=== PATIENT | male | born 1990 | race Caucasian/White ===

== ENCOUNTER 2018-10-04 23:20 | Emergency (ER) | payer SELFPAY ==
--- NOTE | 2018-10-05 00:03 | EDM.PDOC ---
ED HPI GENERAL MEDICAL PROBLEM - General Chief Complaint: Chest Pain Stated Complaint: CHEST PAIN Time Seen by Provider: 10/04/18 23:38 Source of Information: Reports: Patient, RN Notes Reviewed History Limitations: Reports: No Limitations - History of Present Illness INITIAL COMMENTS - FREE TEXT/NARRATIVE: The patient states that he developed a sudden-onset "compression" feeling to his sternal area around 14:00 this afternoon, while at work. He states that he feels the need to occasionally gasp for air, although denies having dyspnea per se. He states that he feels worse if he takes a deep breath while fully upright or supine, better if he is in a semi-recumbent position, even if he takes a deep breath. No associated nausea, diaphoresis, or sense of impending doom. The patient reports developing a headache around 20:30. The patient states that he has had similar chest discomfort twice in the past, both about 2 years ago. He states that he was evaluated, and that a chest x-ray indicated that he may have fractured some of his costal cartilage while playing football. Surgery was recommended, which the patient did not pursue. The patient denies recent injury, although he states that he has to lift heavy items at work, and that he also lifts weights at the gym. The patient does not have a PCP. Mid-Sternal Chest Pain Score (Numeric/FACES): 8 - Related Data Allergies Allergy/AdvReac Type Severity Reaction Status Date / Time naproxen Allergy Swelling Verified 10/04/18 23:26 Home Meds: Home Meds . [No Known Home Meds] 10/04/18 [History] Past Medical History - Past Surgical History HEENT Surgical History: Reports: Myringotomy w Tube(s) (bilateral) Social & Family History - Tobacco Use Smoking Status *Q: Current Every Day Smoker Years of Tobacco use: 16 Packs/Tins Daily: 0.3 Packs/Tins Daily Comment: Down from 3 ppd - Alcohol Use Alcohol Use History: Yes Alcohol Use Frequency: Socially - Recreational Drug Use Recreational Drug Use: No - Living Situation & Occupation Living situation: Reports: Single, Other (Roomate) Occupation: Employed (Construction) ED ROS GENERAL - Review of Systems Review Of Systems: ROS reveals no pertinent complaints other than HPI. ED EXAM, GENERAL - Physical Exam Exam: See Below Exam Limited By: No Limitations General Appearance: Alert, WD/WN, No Apparent Distress Eye Exam: Bilateral Eye: EOMI, Normal Inspection Ears: Normal External Exam, Hearing Grossly Normal Nose: Normal Inspection Throat/Mouth: Normal Inspection, Normal Lips, Normal Voice, No Airway Compromise Head: Atraumatic, Normocephalic Neck: Normal Inspection, Full Range of Motion Respiratory/Chest: No Respiratory Distress, Lungs Clear, Normal Breath Sounds, No Accessory Muscle Use, Other (Reproducible tenderness to palpation of the sternum and the medial aspects of both pectoralis muscles. Pain is also reproduced with the patient compressing his hands in front of his chest, and by crossing either of his arms across his chest and) Cardiovascular: Normal Peripheral Pulses, Regular Rate, Rhythm, No Edema, No Gallop, No JVD, No Murmur, No Rub Peripheral Pulses: 4+: Radial (L), Radial (R) GI/Abdominal: Normal Bowel Sounds, Soft, Non-Tender, No Organomegaly, No Distention, No Abnormal Bruit, No Mass (Male) Exam: Deferred Rectal (Males) Exam: Deferred Back Exam: Normal Inspection, Full Range of Motion, NT Extremities: Normal Inspection, Normal Range of Motion, No Pedal Edema, Normal Capillary Refill Neurological: Alert, Oriented, Normal Cognition, No Motor/Sensory Deficits Psychiatric: Normal Affect Skin Exam: Warm, Dry, Intact, Normal Color, No Rash EKG INTERPRETATION EKG Date: 10/04/18 Time: 11:29 Rhythm: NSR Rate (Beats/Min): 97 [place]: Normal P-Wave: Present (Possible LAE) QRS: Wide (Nonspecific intraventricular conduction delay) ST-T: Normal (J-point elevation, but no ischemic changes) QT: Normal Comparison: NA - No Prior EKG Course - Vital Signs Last Recorded V/S: Last Vital Signs Temp 37.3 C 10/04/18 23:24 Pulse 96 10/04/18 23:24 Resp 15 10/04/18 23:24 BP 158/111 H 10/04/18 23:24 Pulse Ox 100 10/04/18 23:24 - Orders/Labs/Meds Orders: Active Orders 24 hr Category Date Time Status EKG 12 Lead [EKG Documentation Completion] [RC] STAT Care 10/04/18 23:59 Active - Re-Assessments/Exams Free Text/Narrative Re-Assessment/Exam: 10/04/18 23:58 The patient's pain is reproducible with palpation of his sternum, as well as when he flexes either of his pectoralis muscles. The patient likely suffered pectoralis strain when either lifting weights or at work. I'm recommending rest and ibuprofen. He would like a note for work. Departure - Departure Time of Disposition: 23:59 Disposition: Home, Self-Care 01 Condition: Good Clinical Impression: Pectoralis muscle strain - Discharge Information *PRESCRIPTION DRUG MONITORING PROGRAM REVIEWED*: Not Applicable *COPY OF PRESCRIPTION DRUG MONITORING REPORT IN PATIENT PABLO: Not Applicable Instructions: Muscle Strain Referrals: PCP,Not In Area [Primary Care Provider] - Forms: ED Department Discharge, ED Return to Work/School Form Additional Instructions: You were seen in the emergency room for pain to the center of your chest. Workup in the ER included an ECG, which returned normal. Based on your history and physical exam, the cause of your pain is due to strain of both of your pectoralis (chest) muscles. As discussed, there is no way to un-strain a muscle - it will have to heal on its own. We recommend that you not overly exert your chest muscles for the next few days. A note for work has been provided to you. We recommend that you take [id number] ibuprofen, 2-3 tablets (400-600 mg) every 8 hours, with food, as needed for discomfort. If any other problems, please do not hesitate to return to the ER. - My Orders Last 24 Hours: My Active Orders 10/04/18 23:59 EKG 12 Lead [EKG Documentation Completion] [RC] STAT - Assessment/Plan Last 24 Hours: My Active Orders 10/04/18 23:59 EKG 12 Lead [EKG Documentation Completion] [RC] STAT
== END 2018-10-05 00:11 | disposition home or self-care (01) ==
LOC: JD.ED 23:20
DX: S29.011A Strain of muscle and tendon of front wall of thorax, initial encounter (principal); F17.210 Nicotine dependence, cigarettes, uncomplicated; Z88.8 Allergy status to other drugs, medicaments and biological substances; X58.XXXA Exposure to other specified factors, initial encounter; Y99.0 Civilian activity done for income or pay
CPT/HCPCS: 93005; 93010; 99283; 99284-25

== ENCOUNTER 2018-10-05 20:25 | Emergency (ER) | payer SELFPAY ==
[2018-10-05] MEDS ORDERED: Penicillin V Potassium 500 MG Tab PO ONE (22:51)
--- NOTE | 2018-10-05 22:56 | EDM.PDOC ---
ED HPI GENERAL MEDICAL PROBLEM - General Chief Complaint: ENT Problem Stated Complaint: TOOTH PAIN Time Seen by Provider: 10/05/18 22:27 Source of Information: Reports: Patient, RN Notes Reviewed History Limitations: Reports: No Limitations - History of Present Illness INITIAL COMMENTS - FREE TEXT/NARRATIVE: The patient was seen by me in this ED late last night for retrosternal chest discomfort that was found to be musculoskeletal in etiology. I recommended over- the-counter ibuprofen, and wrote him a note for restrictions at work. The patient now returns to the ED stating that he has had right lower pain since 10/01/2018. He believes he broke the tooth 6 or 7 months ago, but states that the pain has not been that bad, up until Thursday. He states that he had the taste of an oral drainage yesterday, but not today. No recent fever. He states that he has not seen a dentist, citing lack of insurance. The patient states that he has tried saltwater swishes, heat, cold, and ibuprofen, without relief. The patient does not have a PCP. Right Jaw Pain Score (Numeric/FACES): 10 - Related Data Allergies Allergy/AdvReac Type Severity Reaction Status Date / Time naproxen Allergy Swelling Verified 10/05/18 20:39 Home Meds: Home Meds Penicillin V Potassium 500 mg PO Q6HR #40 tab 10/05/18 [Rx] Past Medical History - Past Surgical History HEENT Surgical History: Reports: Myringotomy w Tube(s) (bilateral) Social & Family History - Tobacco Use Smoking Status *Q: Current Every Day Smoker Years of Tobacco use: 16 Packs/Tins Daily: 0.3 Packs/Tins Daily Comment: Down from 3 ppd - Alcohol Use Alcohol Use History: Yes Alcohol Use Frequency: Socially - Recreational Drug Use Recreational Drug Use: No - Living Situation & Occupation Living situation: Reports: Single, Other (Roomate) Occupation: Employed (Construction) ED ROS ENT - Review of Systems Review Of Systems: ROS reveals no pertinent complaints other than HPI. ED EXAM, ENT - Physical Exam Exam: See Below Exam Limited By: No Limitations General Appearance: Alert, WD/WN, No Apparent Distress Eye Exam: Bilateral Eye: EOMI, Normal Inspection Ears: Normal External Exam, Normal Canal, Hearing Grossly Normal, Normal TMs Nose: Normal Inspection, Normal Mucousa, No Blood Mouth/Throat: Normal Lips, Normal Oropharynx, Other (Tooth #1 absent. Tooth #2 with severe central decay. Tooth #4 with severe decay to the gingiva. Teeth #6, 7, 8, 9, 10, 11 with advanced decay at the gingiva. Tooth #14 with decay to the gingiva. Tooth #17 absent. Tooth #18 with decay at the gingiva. Tooth #19 with advanced central decay. Tooth #20 with posterolateral decay. Teeth #21, 22, 23 with decay at the gingiva. Tooth #27 with decay at the gingiva. Tooth #30 with advanced decay. Tooth #31 (the tooth of concern) with advanced decay to the gingiva. No gingival swelling or pointing in this area. Tooth #32 absent.) Head: Atraumatic, Normocephalic Neck: Normal Inspection, Supple, Non-Tender, Full Range of Motion. No: Lymphadenopathy (L), Lymphadenopathy (R) Course - Vital Signs Last Recorded V/S: Last Vital Signs Temp 36.9 C 10/05/18 20:39 Pulse 100 10/05/18 20:39 Resp 18 10/05/18 20:39 BP 169/89 H 10/05/18 20:39 Pulse Ox 100 10/05/18 20:39 - Orders/Labs/Meds Meds: Medications Discontinued Medications Generic Name Dose Route Start Last Admin Trade Name [place] PRN Reason Stop Dose Admin Penicillin V Potassium 500 mg 10/05/18 22:51 10/05/18 22:55 Veetids PO 10/05/18 22:52 500 mg ONETIME ONE Administration - Re-Assessments/Exams Free Text/Narrative Re-Assessment/Exam: 10/05/18 22:51 The patient has advanced decay of most of his teeth, including decay all the way to the gingiva of tooth #31, the tooth of concern. I will start the patient on oral penicillin, and prescribe a 10-day course. I explained to the patient that we do not prescribe opioids for dental pain. He does not like naproxen, therefore I will recommend that he continue to take [id number] ibuprofen. A list of local dentists will be provided to him. Departure - Departure Time of Disposition: 22:52 Disposition: Home, Self-Care 01 Condition: Good Clinical Impression: Dental infection - Discharge Information *PRESCRIPTION DRUG MONITORING PROGRAM REVIEWED*: Not Applicable *COPY OF PRESCRIPTION DRUG MONITORING REPORT IN PATIENT PABLO: Not Applicable Prescriptions: Penicillin V Potassium 500 mg PO Q6HR #40 tab Instructions: Dental Abscess, [id number] Referrals: PCP,None [Primary Care Provider] - Forms: ED Department Discharge Additional Instructions: You were seen in the emergency room for lower right dental pain since Thursday, . On examination, you have advanced decay of most of your teeth. No obvious dental infection was found, but are possible. You have been started on the antibiotic penicillin. A prescription for penicillin has been sent to the [facility], located just south and across the [address] from [facility]. Take one tablet of penicillin every 6 hours, starting tomorrow morning, 10/06/2018, as prescribed. Finish the entire prescription unless told otherwise by a dentist. Continue to take [id number] ibuprofen, 2-3 tablets (400-600 mg) every 8 hours, with food, as needed for discomfort. A list of local dentists has been provided to you. It is essential that you follow-up with a dentist within the next 10 days. If any other problems, please do not hesitate to return to the ER.
== END 2018-10-05 23:02 | disposition home or self-care (01) ==
LOC: JD.ED 20:25
DX: K04.7 Periapical abscess without sinus (principal); F17.210 Nicotine dependence, cigarettes, uncomplicated; Z88.8 Allergy status to other drugs, medicaments and biological substances
CPT/HCPCS: 99282; A9270